=== PATIENT | female | born 1980 ===

== ENCOUNTER 2022-11-23 14:00 | Outpatient (REF) | payer MEDICAID, OTHER, SELFPAY ==
[2022-11-24 12:44] LABS: BV Int Neg Control Negative (Negative); BV Int Pos Control Positive (Positive)
[2022-11-24 13:38] LABS: CT PCR NOT DETECTED (Not Detect.); NG PCR NOT DETECTED (Not Detect.)
== END 2022-11-23 14:01 | disposition home or self-care (01) ==
LOC: HO.US 14:00
PROVIDERS: Visit Provider Registered Nurse
DX: N93.9 Abnormal uterine and vaginal bleeding, unspecified (principal)
CPT/HCPCS: 0353U; 87480; 87510; 87660

== ENCOUNTER 2023-06-08 18:08 | Outpatient (REF) | payer MEDICAID, OTHER, SELFPAY ==
[2023-06-09 09:09] LABS: CT PCR NOT DETECTED (Not Detect.); NG PCR NOT DETECTED (Not Detect.)
== END 2023-06-08 18:09 | disposition home or self-care (01) ==
LOC: HO.HHCLNP 18:08
PROVIDERS: Visit Provider Registered Nurse
DX: N93.9 Abnormal uterine and vaginal bleeding, unspecified (principal)
CPT/HCPCS: 0353U

== ENCOUNTER 2024-08-25 10:31 | Outpatient (REF) | payer MEDICAID, OTHER, SELFPAY ==
--- OUTSIDE RECORDS SUMMARY | 2024-08-25 12:05 | XMS_ITS | Encounter Summary ---
Author Organization [employer] Address [address] [facility] 7[address] [place] [address] Care Team Providers Care Electric Motor Control Assembler Name Role Phone Yareli Chinchilla MICROSTRATEGY BI DEVELOPER Primary Care Provider [phone] Encounter Details Date Type Department Care Team (Late Contact Info) Description 11/06/2022 Abstract [facility] [address] [place], [place] [phone] Poonam Reyes [address] [place] [address] Social History Tobacco Use Types Packs/Day Years Used Date Smoking Tobacco: Never Smokeless Tobacco: Never Depression Answer Date Recorded Patient Health Questionnaire-9 Score 0 11/08/2022 Depression Answer Date Recorded Patient Health Questionnaire-2 Score 0 11/08/2022 Comments Unknown Sex and Gender Information Value Date Recorded Sex Assigned at Female 03/13/2022 10:37 AM EDT Legal Sex Female 10:37 AM EDT Gender Identity Female 03/13/2022 10:37 AM EDT Sexual Orientation Straight 03/13/2022 10 :37 AM EDT COVID-19 Exposure Response Date Recorded In the last 10 days, have yo u been in contact with someone who was confirmed or suspected to have Coronavirus/COVID-19? No / Unsure 11/08/2022 2:53 PM EDT documented as of this encounter Plan of Treatment Upcoming Encounters Date Type Department Care Team (Late Contact Info) Description 09/10/2024 8:00 AM EDT Office Visit [facility] [address] [place] [address] Cornell Herrera DMD [address] [place] [address] documented as of this encounter Visit Diagnoses Not on filedocumented in this encounter Care Teams Electric Motor Control Assembler Relationship Specialty Start Date End Date Yareli Chinchilla FNP [address] [place] [address] [place] [address] PCP - General Family Medicine 02/08/21 documented as of this encounter
--- OUTSIDE RECORDS SUMMARY | 2024-08-25 12:05 | XMS_ITS | Encounter Summary ---
Author Organization [employer] [facility] Address [address] [facility] 7 [place] [address] Care Team Providers Care Ultrasound Spec Name Role Phone Yareli Chinchilla Primary Care Provider [phone] Encounter Details Date Type Department Care Team (Latest Contact Info) Description 07/13/2020 Abstract [facility] CONVERSIONS Dental, Provider, DDS Social History Tobacco Use Types Packs/Day Years Used Date Smoking Tobacco: Never Assessed Comments Unknown Sex and Gender Information Value Date Recorded Sex Assigned at Female 03/13/2022 10:37 AM EDT Legal Sex Female 10:37 AM EDT Gender Identity Female 03/13/2022 10:37 AM EDT Sexual Orientation Straight 03/13/2022 10 :37 AM EDT documented as of this encounter Plan of Treatment Upcoming Encounters Date Type Department Care Team ( st Contact Info) Description 09/10/2024 8:00 AM EDT Office Visit [facility] ADULT D[facility] [address] [place] [address] Cornell Herrera, DMD [address] [place] [address] documented as of this encounter Visit Diagnoses Not on filedocumented in this encounter Care Teams Ultrasound Spec Relationship Specialty Start Date End Date Yareli Chinchilla FNP [address] [place] [address] PCP - General Family Medicine 02/08/21 documented as of this encounter
--- OUTSIDE RECORDS SUMMARY | 2024-08-25 12:05 | XMS_ITS | Encounter Summary ---
Author Organization [employer] [facility] Address [address] [facility] 7 [place] [address] Care Team Providers Care Dental Receptionist Name Role Phone Yareli Chinchilla Primary Care Provider Encounter Details Date Type Department Care Team (Latest Contact Info) Description 01/23/2022 Abstract [facility] CONVERSIONS Dental, Provider, DDS Social History [...] Encounters Date Type Department Care Team (Late st Contact Info) Description 09/10/2024 8:00 AM EDT Office Visit [facility] ADULT DENT[facility] [address] [place] [address] Cornell Herrera, DMD [address] [place] [address] documented as of this encounter Visit Diagnoses Not on filedocumented in this encounter Care Teams Dental Receptionist Relationship Specialty Start Date End Date Yareli Chinchilla FNP [address] [place] [address] PCP - General Family Medicine 02/08/21 documented as of this encounter
--- OUTSIDE RECORDS SUMMARY | 2024-08-25 12:05 | XMS_ITS | Clinical Summary ---
Author Organization [employer] Address [address] [facility] 7t [place] [address] Care Team Providers Care Hospital Social Worker Name Role Phone Yareli Chinchilla Primary Care Provider [phone] Allergies No known active allergies Medications * This document contains information received from the source organization and may not represent a complete record from that organization. medroxyPROGESTER one (Depo-Provera) 150 MG/ML injectionIndicat ions:Encounter for Depo-Provera contraception Inject 1 mL (150 mg) into the shoulder, thigh, or buttocks every 3 (three) months. 1 mL 3 06/08/19 24 Active Additional Information Patient not taking.Reported on 08/08/2024 chlorhexidine (Peridex) 0.12 % solution Use 15 mL in the mouth or throat if needed in the morning, at noon, and at bedtime (PROPHYLAXIS) for up to 5 days. 110 mL 08/09/19 25 2024 Discontinued chlorhexidine (Peridex) 0.12 % solution Use 15 mL in the mouth or throat if needed in the morning, at noon, and at bedtime (PROPHYLAXIS) for up to 5 days. 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 of COVID in [place] Encounters * This document contains information received from the source organization and may not represent a complete record from that organization. Date Type Department Care Team Description 08/25/2024 9:00 AM EDT Office Visit [facility] [address] [place], [place] [phone] [facility] Perimenopause (Primary Dx); Elevated blood pressure reading in office without diagnosis of hypertension; Dietary counseling; Exercise counseling; Encounter for screening mammogram for breast cancer 08/25/2024 Travel 08/14/2024 Patient Outreach [facility] [address] [place] [address] [facility] Coordination ([facility]W outreach for SDOH PT-1 and food needs-LVM ) 08/14/2024 Patient Outreach [facility] [address] [place] [phone] [facility] Pre-visit Planning (SDOH screening negative and tobacco screening negative) 08/08/2024 11:00 AM EDT Office Visit [facility] ADULT DENTAL [address] [place] [address] Poonam Reyes Dental calculus (Primary Dx); Gingival bleeding; Acute gingival inflammation; Crowded teeth; Periodontal disease from Last 3 Months Immunizations Name Administration Dates Next Due Influenza injectable quadrivalent preservative f ree 02/23/2023 Social History Tobacco Use Types Packs/Day Years Used Date Smoking Tobacco: Never Smokeless Tobacco: Never Tobacco Cessation:Counseling Given: Not Answered Depression Answer Date Recorded Patient Health Questionnaire-9 Score 5 08/25/2024 Patient Health Questionnaire-9 Score 5 08/25/2024 Last PHQ-9: Questionnaire Data Not on file 0 08/25/2024 Housing Stability Answer Date Recorded What is your housing situation today? I have olman snyder 08/14/[address] you li ve. Do you have problems with any of the following? None of the above 08/14/2024 Food Insecurity Answer Date Recorded Within the past 12 months, y ou worried that your food would run out before you got money to buy more: Never True 08/14/2024 Within the past 12 months,th e food you bought just didn't last and you didn't have enough money to get more: Never True 07/2024 Transportation Answer Date Recorded In the past 12 months, has l ack of transportation kept you from medical appts, meetings, work or from getting things needed for daily living? Yes, it has kept me from non-medical meetings, work, or getting things that I need 08/14/2024 Utilities Answer Date Recorded In the past 12 months, has t he electric, gas, oil or water company threatened to shut off services in your home? No 08/14/2024 Depression Answer Date Recorded Patient Health Questionnaire-2 Score 2 08/25/2024 Internet Access Answer Date Recorded Internet Access Q1 Yes 08/14/2024 Internet Access Q2 Not on file 08/14/2024 Comments Unknown Sex and Gender Information Value Date Recorded Sex Assigned at Female 03/13/2022 10:37 AM EDT Legal Sex Female 10:37 AM EDT Gender Identity Female 03/13/2022 10:37 AM EDT Sexual Orientation Straight 03/13/2022 10 :37 AM EDT Last Filed Vital Signs Vital Sign Reading Time Taken Comments Blood Pressure 130/70 08/25/2024 9:22 AM EDT Pulse 87 08/25/2024 8:53 AM EDT Temperature 36.3 ??C (97.4 ??F) 08/25/2024 8:53 AM ED T Respiratory Rate 20 08/25/2024 8:53 AM EDT Oxygen Saturation 98% 06/08/2023 11:39 AM EST Inhaled Oxygen Concentration - - Weight 65 kg (143 lb 6.4 oz) 08/25/2024 8:53 AM EDT Height 154.9 cm (5' 1 ) 08/25/2024 8:53 AM EDT Body Mass Index 27.1 08/25/2024 8:53 AM EDT Plan of Treatment Upcoming Encounters Date Type Department Care Team (Late st Contact Info) Description 09/10/2024 8:00 AM EDT Office Visit [facility] ADULT DENTAL [address] [place] [address] Cornell Herrera, DMD [address] [place] [address] Health Maintenance Due Date Last Done Comments CT Colonography 1978 Colonoscopy 1978 Colorectal Cancer Screening 1978 FIT DNA/Cologuard 1978 FIT 1978 FOBT 1978 Sigmoidoscopy 1978 Alcohol/Substance Use Screening 1990 Mammogram 2018 COVID-19 Vaccine ( season) 2024 02/24/2021, 01/27/2021 Influenza Vaccine (#1) 2024 02/23/2023, 2021 Family Planning (PISQ) 09/06/2024 09/07/2023 Dental Oral Exam 02/09/2025 08/08/2024, 04/2022, 07/08/2020 Dental Prophylaxis 02/09/2025 08/08/2024, 0 11/01/2022, 01/23/2022, Additional history exists Pap Smear 03/10/2025 03/10/2022 Dental X-Ray: Bitewings 08/09/2025 08/09/19 25, 01/23/2022, 07/08/2020, Additional history exists SDOH Screening 08/14/2025 08/14/2024 Depression Screening 08/25/2025 08/25/2024, 08/26/19 Tobacco Screening 08/25/2025 08/25/2024 Cervical Cancer Screening 03/10/2027 HPV/Cotest 03/10/2027 03/10/2022 Dental X-Ray: Full Mouth 08/10/2027 08/08/2024, 06/15 Zoster Vaccines (1 of 2) 2028 DTaP/Tdap/Td Vaccines (2 - Td or Tdap) 01/05/2032 01/04/2022 RSV Patients and Patients Aged 60 years or older (1 - 1-dose 75+ series) 2053 HIV Screening Completed 09/30/2021 Hepatitis C Screening Completed 09/30/2021 Hepatitis B Vaccines Completed 02/06/2022, 11/15/2021, 10/17/2021 HIB Vaccines Aged Out No longer eligi ble based on patient's age to complete this topic HPV Vaccines Aged Out No longer eligi ble based on patient's age to complete this topic Hepatitis A Vaccines Aged Out No long er eligible based on patient's age to complete this topic IPV Vaccines Aged Out No longer eligi ble based on patient's age to complete this topic Meningococcal Vaccine Aged Out No tiny darin eligible based on patient's age to complete this topic Pneumococcal Vaccine: Pediatrics (0 to 5 Years) and At-Risk Patients (6 to 49) Years) Aged Out No longer eligible based on patient's age to complete this topic RSV under 20 months Aged Out No longe r eligible based on patient's age to complete this topic Rotavirus Vaccines Aged Out No longer eligible based on patient's age to complete this topic Procedures Procedure Name Priority Date/Time Associated Diagnosis Comments PERIODIC ORAL EVALUATION - ESTABLISHED PATIENT Routine 08/08/2024 11:00 AM EDT CASE PRESENTATION, DETAILED AND EXTENSIVE TREATMENT PLANNING Routine 08/08/2024 11:00 AM EDT Dental calculus Gingival bleeding Acute gingival inflammation Crowded teeth Periodontal disease ORAL HYGIENE INSTRUCTIONS Routine 08/08/2024 11:00 AM EDT Dental calculus Gingival bleeding Acute gingival inflammation Crowded teeth Periodontal disease INTRAORAL - COMPLETE SERIES OF RADIOGRAPHIC IMAGES Routine 08/08/2024 11:00 AM EDT Dental calculus Gingival bleeding Acute gingival inflammation Crowded teeth Periodontal disease PROPHYLAXIS - ADULT Routine 08/08/2024 1 1:00 AM EDT Dental calculus Gingival bleeding Acute gingival inflammation Crowded teeth Periodontal disease THINPREP IMAGING PAP AND HPV MRNA E6/E7, WITH CT/NG, TRICHOMONAS Routine 03/10/2022 12:00 AM EDT ZZZ HISTORICAL HEPATITIS C AB W/REFL TO HCV RNA, QN, PCR Routine 09/30/2021 1:10 PM EDT HIV 1/2 ANTIGEN/ANTIBODY, FOURTH GENERATION W/RFL Routine 09/30/2021 1:10 PM EDT from Last 3 Months or Most Recently Relevant to Health Maintenance Results * THINPREP TIS PAP AND HPV mRNA E6/E7, CT/NG, TRICH (03/10/2022 12:00 AM EDT) Chlamydia trachomatis RNA, TMA, Urogenital NOT DETECTED NOT DETECTED CONVERTED [facility] Clinical Information: None given CONVERTED [facility]ela COMMENT SEE COMMENT JENNIFER D [facility]ela Comment: The analytical performance characteristics of this assay, when used to test SurePath(TM) specimens have been determined by [employer]. The modifications have not been cleared or approved by the FDA. This assay has been validated pursuant to the CLIA regulations and is used for clinical purposes. ?? For additional information, please refer to https://education.JobHoreca/faq/PXW726 (This link is being provided for information/ educational purposes only.) ?? COMMENT SEE COMMENT JENNIFER Preciado [facility]ela Comment: EXPLANATORY NOTE: ? The Pap is a screening test for cervical cancer. It is ?? not a diagnostic test and is subject to false negative ?? and false positive results. It is most reliable when a ?? satisfactory sample, regularly obtained, is submitted ?? with relevant clinical findings and history, and when ?? the Pap result is evaluated along with historic and ?? current clinical information. ?? COMMENT: This Pap test has been evaluated with computer assisted technology. CONVERTED [facility]ela Bin Tripper Operator: SEE COMMENT CONVERTED Intela Comment: ED, CT(ASCP) CT screening location: ?? [facility] ?? [address] [place] [address] ?? [place] [address] HPV nRNA E6/E7 Not Detected Not Detected CONVERTED [facility]ela Comment: Methodology: Spot Welder Body Assembly-Mediated Amplification This assay detects E6/E7 viral messenger RNA (mRNA) from 14 high-risk HPV types (16,18,31,33,35,39,45,51,52,56,58,59,66,68). ? Cervical sources are required for HPV testing. If a vaginal source from a patient who has had a total hysterectomy with removal of cervix was ?? submitted, please contact the testing laboratory for alternative testing options. ?? For additional information, please refer to http://Tailwind/faq/SQF736k7 (This link if provided for information/ educational purposes only.) Interpretation/Re sult: Negative for intraepithelial lesion or malignancy. CONVERTED LEGACY LABS LMP: NONE GIVEN CONVERTED LEGACY LABS Neisseria gonorrhoeae RNA, TMA, Urogenital NOT DETECTED NOT DETECTED CONVERTED LEGACY LABS Prev. BX: NONE GIVEN CONVERTED LEGACY LABS Prev. PAP: NONE GIVEN CONVERTE D LEGACY LABS SOURCE: Cervix CONVERTED LEGACY LABS Statement Of Adequacy: SEE COMMENT CONVERTED LEGACY LABS Comment: Satisfactory for evaluation. Endocervical/transformation zone component present. Age and/or menstrual status not provided Trichomonas vaginalis, QL, TMA, PAP Vial NOT DETECTED NOT DETECTED CONVERTED LEGACY LABS Comment: The analytical performance characteristics of this assay have been determined by [employer]. The modifications have not been cleared or approved by the FDA. This assay has been validated pursuant to the CLIA regulations and is used for clinical purposes. ?? For additional information, please refer to http://Via [employer]ics.JobHoreca/ faq/Trichomonastma (This link is being provided for information/ educational purposes only.) ?? 03/10/2022 [facility] LAB PATHOLOGY ORDERABLES Ginger pearce Result CONVERTED LEGACY LABS * HEPATITIS C AB W/REFL TO HCV RNA, QN, PCR (09/30/2021 1:10 PM EDT) HEPATITIS C ANTIBODY NON-REACT XIN NON-REACT XIN [facility] INDEX 0.03 <1.00 [facility] Comment: ?? HCV antibody was non-reactive. There is no laboratory ?? evidence of HCV infection. ?? In most cases, no further action is required. However, if recent HCV exposure is suspected, a test for HCV RNA (test code 91770) is suggested. ?? For additional information please refer to http://education.JobHoreca/faq/VFA61s8 (This link is being provided for informational/ educational purposes only.) ?? 09/30/2021 1:10 PM EDT [facility] [employer] ARCHITECT HISTORICAL/NON ORDERABLE LABS Final Result Performing Organization Address [facility] de Phone Number [facility] [address] * HIV 1/2 ANTIGEN/ANTIBODY,FOURTH GENERATION W/RFL (09/30/2021 1:10 PM EDT) HIV-1/2 ANTIGEN AND ANTIBODIES, 4TH GENERATION W/ REFLEX NON-REACT XIN NON-REACT XIN [facility] Comment: HIV-1 antigen and HIV-1/HIV-2 antibodies were not detected. There is no laboratory evidence of HIV infection. ?? PLEASE NOTE: This information has been disclosed to you from records whose confidentiality may be protected by state law. ??If your state requires such protection, then the state law prohibits you from making any further disclosure of the information without the specific written consent of the person to whom it pertains, or as otherwise permitted by law. A general authorization for the release of medical or other information is NOT sufficient for this purpose. ? For additional information please refer to http://Via optronics.Leadwerks.Tinychat/faq/BSL735 (This link is being provided for informational/ educational purposes only.) ? The performance of this assay has not been clinically validated in patients less than 2 years old. ?? 09/30/2021 1:10 PM EDT [facility] LAB BLOOD ORDERABLES Final Re sult Performing Organization Address [facility] de Phone Number [facility] [address] from Last 3 Months or Most Recently Relevant to Health Maintenance Insurance [facility] HSN FULL DENTAL-[facility] MEDICAID LIMITED ADULT DENTAL - HSN FULL (MEDICAID) Care Teams Hospital Social Worker Relationship Specialty Start Date End Date Yareli Chinchilla FNP [address] [place] [id number] PCP - General Family Medicine 02/08/21
--- OUTSIDE RECORDS SUMMARY | 2024-08-25 12:05 | XMS_ITS | Encounter Summary ---
Author Organization [employer] Address [address] [facility] [address] [place] [address] Care Team Providers Care Mirror Machine Feeder Name Role Phone Yareli Chinchilla Primary Care Provider [phone] Reason for Referral * Imaging (Routine) - Authorized Specialty Diagnoses / Procedures Referred By Salvatore collins Referred To Contact Radiology Diagnoses Encounter for screening mammogram for breast cancer Procedures BI Mammogram Screening Tomosynthesis Bilateral Yareli Chinchilla FNP [address] [place] [address] Phone: tel: fax: [address] Phone: tel: fax: Referral ID Status Reason Start Date Expiration Date V isits Requested Visits Authorized [id number] Authorized 08/25/2024 08/25/2025 1 1 Reason for Visit * Reason Comments Follow-up Encounter Details Date Type Department Care Team (Latest Contact Info) Description 08/25/2024 9:00 AM EDT Office Visit [facility] [address] [place], [place] [phone] Yareli Chinchilla FNP [address] [place] [address] Perimenopause (Primary Dx); Elevated blood pressure reading in office without diagnosis of hypertension; Dietary counseling; Exercise counseling; Encounter for screening mammogram for breast cancer Social History Tobacco Use Types Packs/Day Years [...] AM EDT documented as of this encounter Last Filed Vital Signs Vital Sign Reading Time Taken Comments Blood Pressure 130/70 08/25/2024 9:22 AM EDT Pulse 87 08/25/2024 8:53 AM EDT Temperature 36.3 ??C (97.4 ??F) 08/25/2024 8:53 AM ED T Respiratory Rate 20 08/25/2024 8:53 AM EDT Oxygen Saturation - - Inhaled Oxygen Concentration - - Weight 65 kg (143 lb 6.4 oz) 08/25/2024 8:53 AM EDT Height 154.9 cm (5' 1 ) 08/25/2024 8:53 AM EDT Body Mass Index 27.1 08/25/2024 8:53 AM EDT documented in this encounter Progress Notes * [facility], ACOUSTICAL TILE PATTERNMAKER - 08/25/2024 9:00 AM EDT SUBJECTIVE: Dora Tyler is a 44 y.o. year old female with white coat HTN who presents for chronic disease management. Denies recent illness, injury, or hospitalization. Acute Concerns: Menses-last depo 6 months ago --discontinued due to not sexually active. Has not had menses in >12 months. Denies irregular bleeding/spotting. Interval History BP-home readings well controlled Social History Social History Narrative Tobacco Use: None ETOH: None Marijuana Use: None Other substance use: None Current living environment: Lives with her 2 children. Children: 3 (1 adult daughter lives in [place]) Employment/education: [employer] Sexually active: No Partners are: AMAB control: Abstinence Patient Active Problem List Diagnosis Dental calculus Posttraumatic stress disorder Gestational diabetes Elevated blood pressure reading in office without diagnosis of hypertension Healthcare maintenance Gingival bleeding Acute gingival inflammation Crowded teeth Periodontal disease No past surgical history on file. No family history on file. Review of Systems Constitutional: Negative for fatigue, fever and unexpected weight change. Eyes: Negative for visual disturbance. Respiratory: Negative for apnea, chest tightness and shortness of breath. Cardiovascular: Negative for chest pain, palpitations and leg swelling. Neurological: Negative for dizziness, light-headedness and headaches. OBJECTIVE: Vitals: 08/25/24 0853 08/25/24 0922 BP: (!) 141/88 130/70 BP Location: Left arm Patient Position: Sitting BP Cuff Size: Adult Pulse: 87 Resp: 20 Temp: 97.4 ??F (36.3 ??C) TempSrc: Temporal Weight: 143 lb 6.4 oz (65 kg) Height: 5' 1 (1.549 m) Physical Exam Constitutional: General: She is not in acute distress. Appearance: Normal appearance. HENT: Head: Normocephalic and atraumatic. Right Ear: External ear normal. Left Ear: External ear normal. Nose: Nose normal. Eyes: Conjunctiva/sclera: Conjunctivae normal. Cardiovascular: Rate and Rhythm: Normal rate and regular rhythm. Heart sounds: Normal heart sounds. Pulmonary: Effort: Pulmonary effort is normal. Breath sounds: Normal breath sounds. Skin: General: Skin is warm and dry. Neurological: General: No focal deficit present. Mental Status: She is alert and oriented to person, place, and time. Psychiatric: Mood and Affect: Mood normal. Behavior: Behavior normal. ASSESSMENT/PLAN Perimenopause -Check labs - Pt will contact HC if she would like to tx vasomotor sx - Will update labs for ASCVD risk Blood Pressure - BP elevated in office. Repeat WNL. Pt asx. Home readings well controlled. Nervous in office - Pt to continue home monitoring - Focus on diet/exercise Positive Depression Screen - Accepts referral. In office BE completed Contact HC if sx worsen or experiencing thoughts of SI or self harm. Pt has [facility] crisis contact information - Reviewed ED precautions to include chest pain, shortness of breath, severe headache, sudden vision changes or BP >=180/>=120 mmHg. Contact HC if three or more BP readings >140/90. Healthcare Maintenance - Mammogram: Due, will order today - Discuss CRC screening at follow up PE Pap UTD Follow Up: 6 months, PE Current Outpatient Medications on File Prior to Visit Medication Sig Dispense Refill [] chlorhexidine (Peridex) 0.12 % solution Use 15 mL in the mouth or throat if needed in themorning, at noon, and at bedtime (PROPHYLAXIS) for up to 5 days. 110 mL 0 medroxyPROGESTERone (Depo-Provera) 150 MG/ML injection Inject 1 mL (150 mg) into the shoulder, thigh, or buttocks every 3 (three) months. (Patient not taking: Reported on 08/08/2024) 1 mL 3 Current Facility-Administered Medications on File Prior to Visit Medication Dose Route Frequency Provider Last Rate Last Admin medroxyPROGESTERone (Depo-Provera) injection 150 mg 150 mg Intramuscular q3 months [facility], ACOU[employer]ICAL TILE PATTERNMAKER 150 mg at 06/08/23 1230 medroxyPROGESTERone (Depo-Provera) injection 150 mg 150 mg Intramuscular q3 months [facility] ACOUSTICAL TILE PATTERNMAKER 150 mg at 09/07/23 1525 [place] Translation: Provided by [facility] staff member BRITTANY Morales documented in this encounter Plan of Treatment Upcoming Encounters Date Type Department Care Team (Late st Contact Info) Description 09/10/2024 8:00 AM EDT Office Visit [facility] [address] [place], [place] [phone] Cornell Herrera, DMD [address] [place] [address] Scheduled Orders Name Type Priority Associated Diagnoses Orde r Schedule FSH Lab Routine Perimenopause Expected: 08/25/2024, Expires: 08/25/2025 TSH W/Reflex to FT4 Lab Routine Perimenopause Expected: 08/25/2024 (Approximate), Expires: 08/25/2025 Comprehensive Metabolic Panel Lab Routine Elevated blood pressure reading in office without diagnosis of hypertension Expected: 08/25/2024 (Approximate), Expires: 08/25/2025 Lipid Panel, Standard Lab Routine Elevated blood pressure reading in office without diagnosis of hypertension Expected: 08/25/2024 (Approximate), Expires: 08/25/2025 Prolactin Lab Routine Perimenopause Expected: 08/25/2024 (Approximate), Expires: 08/25/2025 BI Mammogram Screening Tomosynthesis Bilateral Imaging Routine Encounter for screening mammogram for breast cancer Expected: 08/25/2024, Expires: 10/25/2025 documented as of this encounter Visit Diagnoses Diagnosis Perimenopause- Primary Symptomatic menopausal or female climacteric states Elevated blood pressure reading in office without diagnosis of hypertension Dietary counseling Dietary surveillance and counseling Exercise counseling Encounter for screening mammogram for breast cancer documented in this encounter Additional Health Concerns Assessment Noted Time PHQ-9 Depression Total Score: 5 08/26/19 25 9:00 AM EDT documented as of this encounter Care Teams Mirror Machine Feeder Relationship Specialty Start Date End Date Yareli Chinchilla FNP [address] [place] [address] PCP - General Family Medicine 02/08/21 documented as of this encounter
--- OUTSIDE RECORDS SUMMARY | 2024-08-25 12:05 | XMS_ITS | Encounter Summary ---
Author Organization [employer] Address [address] [facility] [address] [place] [address] Care Team Providers Care Farm Planner Name Role Phone Yareli Chinchilla FIELD CREW CHIEF Primary Care Provider [phone] Encounter Details Date Type Department Care Team (Latest Contact Info) Description 08/25/2024 Travel Social History Tobacco Use Types Packs/Day Years [...] Description 09/10/2024 8:00 AM EDT Office Visit [facility] [address] [place] [address] Cornell Herrera DMD [address] [place] [address] documented as of this encounter Visit Diagnoses Not on filedocumented in this encounter Additional Health Concerns Assessment Noted Time PHQ-9 Depression Total Score: 5 08/26/19 25 9:00 AM EDT documented as of this encounter Care Teams Farm Planner Relationship Specialty Start Date End Date Yareli Chinchilla FNP [address] [place] [address] PCP - General Family Medicine 02/08/21 documented as of this encounter
[2024-08-25 12:10] LABS: Alanine Aminotransferase 44 U/L (0-31); Albumin Level 4.6 g/dL (3.5-5.0); Anion Gap 12 (12-20); Aspartate Amino Transferase 39 U/L (5-31); Bilirubin Total 0.3 mg/dL (0.0-1.0); Blood Urea Nitrogen 9 mg/dL (9-16); Calcium 9.7 mg/dL (8.4-10.2); Carbon Dioxide 26 mmol/L (22-29); Chloride 106 mmol/L (96-108); Cholesterol 184 mg/dL (<200); Estimated Glomerular Filt Rate > 60; Glucose Random 98 mg/dL (60-115); HDL Cholesterol 63 mg/dL (>40); LDL Cholesterol Calculated 63 mg/dL (<100); Potassium 4.4 mmol/L (3.3-5.1); Sodium 140 mmol/L (135-145); Total Protein 8.1 g/dL (6.5-8.0); Triglycerides 290 mg/dL (<150)
[2024-08-25 12:21] LABS: TSH reflex Free T4 1.51 uIU/mL (0.32-4.0)
[2024-08-25 12:31] LABS: Alkaline Phosphatase 94 U/L (39-117)
[2024-08-26 09:13] LABS: Follicle Stimulating Hormone 37.8 mIU/mL; Prolactin 9.3 ng/mL
== END 2024-08-25 10:32 | disposition home or self-care (01) ==
LOC: HO.HHCL 10:31
PROVIDERS: Visit Provider Registered Nurse
DX: N95.1 Menopausal and female climacteric states (principal); R03.0 Elevated blood-pressure reading, without diagnosis of hypertension
CPT/HCPCS: 36415; 80053; 80061; 83001; 84146; 84443

== ENCOUNTER 2024-10-23 08:02 | Outpatient (REF) | payer MEDICAID, OTHER, SELFPAY ==
--- NOTE | ~2024-10-23 | US_ITS ---
CLINICAL HISTORY: 44-year-old female with persistent liver enzyme elevation, suspected NAFLD Ultrasound of the abdomen Comparison: None Findings: The liver is normal in size, measuring 14.2cm. Increased echogenicity of the liverwith focal fatty sparing at the gallbladder fossa. Normal flow is visualized within the portal vein. There is intrahepatic biliary ductal dilatation. There is a lesion in the gallbladder with internal vascularity. Cholelithiasis. No gallbladder wall thickening or pericholecystic fluid. Negative Johnston's sign. The common bile duct is dilated, measuring 1.2cm. Unremarkable limited evaluation of the pancreas. Ductal dilatation is not definitively visualized; attention on MR is recommended. The right kidney is normal in echogenicity and size, measuring 10.5cm. No nephrolithiasis or hydronephrosis. The left kidney is normal echogenicity and size, measuring 10.4cm. No nephrolithiasis or hydronephrosis. The spleen is without focal lesions and normal in size, measuring 8.1cm. The aorta and IVC are unremarkable. No ascites. Impression: Lesion in the gallbladder with internal vascularity is concerning for a mass. Evaluate further with MR abdomen with and without contrast. Intrahepatic and extrahepatic biliary ductal dilatation of uncertain etiology. Evaluate further with MRCP. Hepatic steatosis. This document has been electronically signed by: Michelle Koenig MD on 10/23/2024 19:59:30
--- OUTSIDE RECORDS SUMMARY | 2024-10-23 08:06 | XMS_ITS | Encounter Summary ---
Author Organization [employer] Address [address] [facility] [address] [place] [address] Care Team Providers Care Tele Grout Sewer Line Repairer Name Role Phone Amor [facility] Primary Care Provider [phone] Encounter Details Date Type Department Care Team (Late st Contact Info) Description 11/06/2022 Abstract [facility] [address] [place], [place] [phone] AmyDouglasPoonam [address] [place] [address] Social History Tobacco Use Types Packs/Day Years [...] PM EDT documented as of this encounter Functional Status * Over the past 2 weeks, how often have you been bothered by any of the following problems? Question Answer Date of Assessment Author Patient Health Questionnaire-2 Score 0 11/08/2022 3:57 PM EDT Sierra Roque [place] * Over the past 2 weeks, how often have you been bothered by any of the following problems? Question Answer Date of Assessment Author Little interest or pleasure in doing things Not at all 11/08/2022 3:57 PM EDT Sierra Roque [place] Feeling down, depressed, or hopeless Not at all 11/08/2022 3:57 PM EDT Sierra Roque [place] Trouble falling or staying asleep, or sleeping too much Not at all 11/08/2022 3:57 PM EDT Sierra Lin [place] Feeling tired or having little energy Not at all 11/08/2022 3:57 PM EDT Sierra Roque [place] Poor appetite or overeating Not at all 11/08/2022 3: 57 PM EDT Sierra Roque [place] Feeling bad about yourself - or that you are a failure or have let yourself or your family down Not at all 11/08/2022 3:57 PM EDT Sierra Roque [place] Trouble concentrating on things, such as reading the newspaper or watching television Not at all 11/08/2022 3:57 PM LYNNT Sierra Roque [place] Moving or speaking so slowly that other people could have noticed? Or the opposite - being so fidgety or restless that you have been moving around a lot more than usual. Not at all 11/08/2022 3:57 PM EDT Sierra Carter [place] Thoughts that you would be better off or hurting yourself in some way Not at all 11/08/2022 3:57 PM EDT Sierra Roque [place] Patient Health Questionnaire-9 Score 0 11/08/2022 3:57 PM LYNNT Sierra Roque [place] documented as of this encounter Plan of Treatment Not on file documented as of this encounter Visit Diagnoses Not on filedocumented in this encounter Care Teams Tele Grout Sewer Line Repairer Relationship Specialty Start Date End Date Yareli Chinchilla FNP [address] [place] [phone] PCP - General Family Medicine 02/08/21 documented as of this encounter
== END 2024-10-23 08:03 | disposition home or self-care (01) ==
LOC: HO.US 08:02
PROVIDERS: Visit Provider Registered Nurse
DX: R74.8 Abnormal levels of other serum enzymes (principal)
CPT/HCPCS: 76700

== ENCOUNTER → 2024-10-23 08:03 | Outpatient (BNV) | payer SELFPAY | PROVIDERS: Visit Provider Radiology Diagnostic Radiology | DX: K80.20 Calculus of gallbladder without cholecystitis without obstruction (principal) | CPT/HCPCS: 76700 ==

== ENCOUNTER → 2024-10-28 13:33 | Outpatient (BNV) | payer SELFPAY | PROVIDERS: PCP Registered Nurse; Visit Provider Radiology Diagnostic Radiology | DX: K80.20 Calculus of gallbladder without cholecystitis without obstruction (principal) | CPT/HCPCS: 74183 ==

== ENCOUNTER 2024-10-28 13:36 | Outpatient (REF) | payer MEDICAID, OTHER, SELFPAY ==
--- NOTE | ~2024-10-28 | MR_ITS ---
EXAMINATION: MR ABDOMEN WITHOUT AND WITH CONTRAST MRCP protocol. CLINICAL INFORMATION: Gallbladder mass. COMPARISON: Correlated to ultrasound dated October 23, 2024. TECHNIQUE: MR abdomen was performed without and with use of 6 mL intravenous (Gadavist) gadolinium contrast. Postcontrast images are performed in multiphase dynamic sequences. Imaging was performed in 3 planes. No reported immediate complications. FINDINGS: Limited by patient's motion artifact. LUNG BASES: No enhancing mass. LIVER, GALLBLADDER, AND BILIARY TREE: Liver measures 15 cm. No focal enhancing mass. Main portal veins, hepatic veins and intrahepatic portion of the IVC are patent. No intrahepatic biliary ductal dilatation. There is a 2 cm rounded nonenhancing hypointense signal in all sequences at the gallbladder neck. No pericholecystic fluid collection or gallbladder wall thickening. Common bile duct measures 8 mm. No intraluminal signal abnormality. PANCREAS: No focal mass. No main pancreatic ductal dilatation. No peripancreatic fluid collection. SPLEEN: 7 cm. No focal lesion. Small accessory spleen. ADRENAL GLANDS: No nodular lesions. KIDNEYS AND URETERS: No renal mass. No hydronephrosis. Normal enhancement pattern of the renal parenchyma. GASTROINTESTINAL TRACT: Abundant stool. No intestinal obstruction pattern. ABDOMINAL WALL: Small tiny fat-containing umbilical hernia. LYMPH NODES: No lymphadenopathy, mesenteric. VASCULAR: No aneurysm or dissection, abdominal aorta. OSSEOUS STRUCTURES: Multilevel lumbar spondylosis more pronounced at L5-S1 and L4-5 levels. MR/MR abdomen wo/w con IMPRESSION: 2 cm cholelithiasis. Mild prominent common bile duct without choledocholithiasis. No enhancing mass. Electronically signed by: Devyn Millard MD 10/28/2024 03:13 PM EDT
[2024-10-28] MEDS: gadobutroL 7.5 ML VIAL IVPUSH (14:45)
== END 2024-10-28 13:37 | disposition home or self-care (01) ==
LOC: HO.MRI 13:36
PROVIDERS: PCP Registered Nurse; Visit Provider Registered Nurse
DX: K82.8 Other specified diseases of gallbladder (principal)
CPT/HCPCS: 74183; A9585